=== PATIENT | female | born 1970 | race Caucasian/White ===

== ENCOUNTER 2018-05-28 18:53 | Inpatient (IN) | payer OTHER ==
[~2018-05-28] VITALS: Ht 157.5 cm; Wt 72.7 kg
[2018-05-28] MEDS ORDERED: ONDANSETRON 2MG/ML, 2ML ONE (19:02)
[2018-05-28] MEDS ORDERED: PROMETHAZINE 25 MG/ML, 1ML ONE (19:26)
[2018-05-28] MEDS ORDERED: ONDANSETRON 2MG/ML, 2ML IVPush ONE (19:30)
[2018-05-28] MEDS ORDERED: NITROGLYCERIN SINGLE TAB 0.4 MG SL PRN (19:30)
[2018-05-28] MEDS ORDERED: MORPHINE SULFATE 4 MG/ML, 1ML IVPush PRN (19:30)
[2018-05-28] MEDS ORDERED: PROMETHAZINE 25 MG/ML, 1ML IM ONE (19:30)
[2018-05-28] MEDS ORDERED: SODIUM CHLORIDE FLUSH 10ML SYR IVF ONE (19:30)
[2018-05-28 19:33] LABS: BASOPHILS # (AUTO) 0.01 x10^3/uL (0-0.1); BASOPHILS % (AUTO) 0 % (0-1); EOSINOPHILS # (AUTO) 0.01 x10^3/uL (0-0.4); EOSINOPHILS % (AUTO) 0 % (1-7); LYMPHOCYTES # (AUTO) 1.78 x10^3/uL (1-3.4); LYMPHOCYTES % (AUTO) 14 % (22-44); MD NO; MEAN CORPUSCULAR HEMOGLOBIN 31.6 pg (27.0-34.8); MEAN CORPUSCULAR HGB CONC 34.3 g/dL (32.4-35.8); MEAN CORPUSCULAR VOLUME 92.1 fL (80-100); MEAN PLATELET VOLUME 7.9 fL (7.4-10.4); MONOCYTES # (AUTO) 0.49 x10^3/uL (0.2-0.8); MONOCYTES % (AUTO) 4 % (2-9); NEUTROPHILS # (AUTO) 10.06 x10^3/uL (1.8-6.8); NEUTROPHILS % (AUTO) 81 % (42-75); PLATELET COUNT 380 x10^3/uL (130-400); RED BLOOD COUNT 5.03 x10^6/uL (3.82-5.3); RED CELL DISTRIBUTION WIDTH 13.2 % (9.6-15.2)
[2018-05-28 19:42] LABS: ALANINE AMINOTRANSFERASE 62 U/L (12-78); ALBUMIN 4.6 g/dL (3.4-5.0); ANION GAP 16 mmol/L (5-15); CALCIUM 9.4 mg/dL (8.5-10.1); CHLORIDE 106 mmol/L (98-107); CREATININE 1.11 mg/dL (0.55-1.02)
[2018-05-28 19:45] LABS: D-DIMER 0.42 ug/mlFEU (0.00-0.52); INTERNATIONAL NORMALIZED RATIO 1.01 (0.93-1.1); PROTHROMBIN TIME 10.7 Seconds (9.6-11.5)
[2018-05-28 19:46] LABS: ALKALINE PHOSPHATASE 50 U/L (45-117); BILIRUBIN,TOTAL 0.6 mg/dL (0.2-1.0); TOTAL PROTEIN 8.6 g/dL (6.4-8.2); TROPONIN I < 0.015 ng/mL (0.000-0.045)
[2018-05-28] MEDS ORDERED: ZIPR80CA2 PO (20:00)
[2018-05-28] MEDS ORDERED: METOCLOPRAMIDE 5 MG/ML, 2ML IVPush ONE (20:00)
[2018-05-28] MEDS ORDERED: QUET400T4 PO (20:00)
[2018-05-28] MEDS ORDERED: METOCLOPRAMIDE 5 MG/ML, 2ML ONE (20:08)
[2018-05-28] MEDS ORDERED: SODIUM CHLORIDE FLUSH 10ML SYR IVF PRN (20:30)
[2018-05-28] MEDS ORDERED: NITROGLYCERIN 0.4 MG BOTTLE (25 TABS) SL PRN (21:00)
[2018-05-28] MEDS ORDERED: QUETIAPINE 200 MG TABLET PO SCH ×2 (21:00→22:21)
[2018-05-28] MEDS: ZIPRASIDONE 40MG CAPSULE PO SCH ×2 (21:00→22:17)
[2018-05-28] MEDS ORDERED: hydrALAzine 20 MG/ML, 1ML IVPush PRN (21:00)
[2018-05-28] MEDS ORDERED: ACETAMINOPHEN 325 MG TABLET PO PRN (21:00)
[2018-05-28] MEDS: SODIUM CHLORIDE 0.9% 1,000 ML IV SCH (21:44)
[2018-05-28] MEDS: ONDANSETRON 2MG/ML, 2ML IVPush PRN (22:16)
[2018-05-28] MEDS: morphine SULFATE 10 MG/ML, 1ML IVPush PRN ×2 (22:16→22:50)
[2018-05-28] MEDS ORDERED: ZIPRASIDONE 40MG CAPSULE PO SCH (22:21)
[2018-05-28 22:30] VITALS: BP 150/91
[2018-05-28] MEDS: ZIPRASIDONE 40MG CAPSULE HOMEMEDPO SCH (22:30)
[2018-05-28] MEDS: PROMETHAZINE 25 MG/ML, 1ML IM PRN (23:07)
[2018-05-29] MEDS ORDERED: ZOLPIDEM 5MG TABLET ONE (00:37)
[2018-05-29] MEDS: morphine SULFATE 10 MG/ML, 1ML IVPush PRN ×3 (00:40→19:38)
[2018-05-29] MEDS: ZOLPIDEM 5MG TABLET PO PRN (00:40)
[2018-05-29 00:55] VITALS: BP 99/66
[2018-05-29 01:16] LABS: TROPONIN I < 0.015 ng/mL (0.000-0.045)
[2018-05-29 01:33] VITALS: BP 96/61
[2018-05-29] MEDS ORDERED: SODIUM CHLORIDE 0.9%, 250ML IVBOLUS ONE (02:30)
[2018-05-29 03:40] VITALS: BP_SYST 153; BP_SYST 159; BP_DIAS 93; BP_DIAS 94
[2018-05-29] MEDS: PROMETHAZINE 25 MG/ML, 1ML IM PRN ×6 (03:56→20:52)
[2018-05-29] MEDS: SODIUM CHLORIDE 0.9% 1,000 ML IV SCH ×2 (04:02→13:00)
[2018-05-29 07:21] LABS: BASOPHILS # (AUTO) 0.03 x10^3/uL (0-0.1); BASOPHILS % (AUTO) 0 % (0-1); EOSINOPHILS % (AUTO) 0 % (1-7); LYMPHOCYTES # (AUTO) 1.49 x10^3/uL (1-3.4); LYMPHOCYTES % (AUTO) 14 % (22-44); MD NO; MEAN CORPUSCULAR HGB CONC 33.8 g/dL (32.4-35.8); MEAN CORPUSCULAR VOLUME 91.9 fL (80-100); MEAN PLATELET VOLUME 7.9 fL (7.4-10.4); MONOCYTES # (AUTO) 0.62 x10^3/uL (0.2-0.8); MONOCYTES % (AUTO) 6 % (2-9); NEUTROPHILS # (AUTO) 8.95 x10^3/uL (1.8-6.8); NEUTROPHILS % (AUTO) 81 % (42-75); PLATELET COUNT 329 x10^3/uL (130-400); RED BLOOD COUNT 4.46 x10^6/uL (3.82-5.3); RED CELL DISTRIBUTION WIDTH 13.2 % (9.6-15.2)
[2018-05-29 07:32] LABS: ALANINE AMINOTRANSFERASE 51 U/L (12-78); ANION GAP 6 mmol/L (5-15); CALCIUM 7.8 mg/dL (8.5-10.1); CHLORIDE 109 mmol/L (98-107); CHOLESTEROL, TOTAL 181 mg/dL (140-239); CREATININE 0.77 mg/dL (0.55-1.02)
[2018-05-29 07:37] LABS: ALKALINE PHOSPHATASE 43 U/L (45-117); BILIRUBIN,TOTAL 0.8 mg/dL (0.2-1.0); HDL CHOL % 25 % (28-40); HDL CHOLESTEROL (DIRECT) 45 mg/dL (40-60); LDL CHOLESTEROL,CALCULATED 112 mg/dL (54-169); LDL/HDL RATIO 2.5 (0.5-3.0); TOTAL PROTEIN 7.6 g/dL (6.4-8.2); TRIGLYCERIDES 121 mg/dL (50-200); TROPONIN I < 0.015 ng/mL (0.000-0.045); VLDL CHOLESTEROL 24 mg/dL (0-25)
[2018-05-29] MEDS: ASPIRIN 81 MG TABLET CHEW PO SCH (08:15)
[2018-05-29] MEDS ORDERED: REGADENOSON 0.4 MG/5 ML SYRINGE ONE (08:22)
[2018-05-29 08:26] VITALS: BP 155/90
[2018-05-29 08:39] LABS: MICROSCOPIC INDICATED
[2018-05-29 08:56] LABS: CULTURE INDICATED? YES
[2018-05-29] MEDS: ONDANSETRON 2MG/ML, 2ML IVPush PRN (12:41)
[2018-05-29 13:02] VITALS: BP 149/87
[2018-05-29] MEDS ORDERED: LORazepam 2 MG/ML, 1ML IVPush ONE (15:30)
[2018-05-29] MEDS ORDERED: METOCLOPRAMIDE 5 MG/ML, 2ML IVPush ONE (15:30)
[2018-05-29 19:50] VITALS: BP 153/79
[2018-05-29] MEDS: QUETIAPINE 200 MG TABLET HOMEMEDPO SCH (20:52)
[2018-05-29] MEDS: ZIPRASIDONE 40MG CAPSULE HOMEMEDPO SCH (20:58)
[2018-05-29] MEDS: NS + 20MEQ KCL 1,000 ML IV SCH (21:08)
[2018-05-30 03:32] VITALS: BP 100/60
[2018-05-30] MEDS: NS + 20MEQ KCL 1,000 ML IV SCH ×3 (05:11→23:04)
[2018-05-30 08:59] VITALS: BP 152/94
[2018-05-30] MEDS: ASPIRIN 81 MG TABLET CHEW PO SCH (09:29)
[2018-05-30] MEDS: PROMETHAZINE 25 MG/ML, 1ML IM PRN ×2 (09:29→19:46)
[2018-05-30] MEDS: morphine SULFATE 10 MG/ML, 1ML IVPush PRN ×3 (10:07→19:48)
[2018-05-30] MEDS ORDERED: LORazepam 2 MG/ML, 1ML IVPush PRN (11:00)
[2018-05-30] MEDS ORDERED: PROCHLORPERAZINE 5 MG/ML, 2ML IV ONE (11:00)
[2018-05-30] MEDS: LORazepam 2 MG/ML, 1ML IVPush PRN ×2 (11:06→15:24)
[2018-05-30] MEDS: ONDANSETRON 2MG/ML, 2ML IVPush PRN (11:10)
[2018-05-30 14:33] LABS: CLOSTRIDIUM DIFFICILE ANTIGEN NEGATIVE; CLOSTRIDIUM DIFFICILE TOXIN NEGATIVE (Negative)
[2018-05-30 15:59] VITALS: BP 110/73
[2018-05-30] MEDS: ZIPRASIDONE 40MG CAPSULE HOMEMEDPO SCH (20:01)
[2018-05-30] MEDS: QUETIAPINE 200 MG TABLET HOMEMEDPO SCH (20:01)
[2018-05-30 20:35] VITALS: BP 127/75
[2018-05-31 02:15] VITALS: BP 109/76
[2018-05-31 04:55] LABS: BASOPHILS # (AUTO) 0.11 x10^3/uL (0-0.1); BASOPHILS % (AUTO) 1 % (0-1); EOSINOPHILS # (AUTO) 0.17 x10^3/uL (0-0.4); EOSINOPHILS % (AUTO) 2 % (1-7); LYMPHOCYTES # (AUTO) 4.14 x10^3/uL (1-3.4); LYMPHOCYTES % (AUTO) 38 % (22-44); MD NO; MEAN CORPUSCULAR HEMOGLOBIN 31.6 pg (27.0-34.8); MEAN CORPUSCULAR HGB CONC 34.1 g/dL (32.4-35.8); MEAN CORPUSCULAR VOLUME 92.6 fL (80-100); MEAN PLATELET VOLUME 7.7 fL (7.4-10.4); MONOCYTES # (AUTO) 0.69 x10^3/uL (0.2-0.8); MONOCYTES % (AUTO) 6 % (2-9); NEUTROPHILS # (AUTO) 5.93 x10^3/uL (1.8-6.8); NEUTROPHILS % (AUTO) 54 % (42-75); PLATELET COUNT 259 x10^3/uL (130-400); RED BLOOD COUNT 4.05 x10^6/uL (3.82-5.3)
[2018-05-31 05:03] LABS: ANION GAP 10 mmol/L (5-15); CALCIUM 7.7 mg/dL (8.5-10.1); CHLORIDE 110 mmol/L (98-107)
[2018-05-31 06:57] VITALS: BP 136/88
[2018-05-31] MEDS: NS + 20MEQ KCL 1,000 ML IV SCH ×3 (07:35→23:09)
[2018-05-31] MEDS: LORazepam 2 MG/ML, 1ML IVPush PRN ×2 (08:14→16:16)
[2018-05-31] MEDS: ONDANSETRON 2MG/ML, 2ML IVPush PRN (08:14)
[2018-05-31] MEDS: ASPIRIN 81 MG TABLET CHEW PO SCH (09:00)
[2018-05-31] MEDS: morphine SULFATE 10 MG/ML, 1ML IVPush PRN (09:38)
[2018-05-31] MEDS ORDERED: MIDAZOLAM 1 MG/ML, 5ML ONE (10:18)
[2018-05-31] MEDS ORDERED: FENTANYL PF 100 MCG/2ML ONE (10:18)
[2018-05-31] MEDS ORDERED: DIPHENHYDRAMINE 50 MG/ML, 1ML ONE (11:19)
[2018-05-31 12:22] VITALS: BP 120/81
[2018-05-31] MEDS: PANTOPRAZOLE 40 MG IV IVPush SCH ×2 (12:30→23:12)
[2018-05-31] MEDS: SUCRALFATE 1 GM/10 ML UDC PO SCH ×3 (12:30→19:50)
[2018-05-31] MEDS: PROMETHAZINE 25 MG/ML, 1ML IM PRN (17:03)
[2018-05-31] MEDS ORDERED: METOCLOPRAMIDE 5 MG/ML, 2ML ONE (18:05)
[2018-05-31] MEDS: METOCLOPRAMIDE 5 MG/ML, 2ML IVPush PRN (18:09)
[2018-05-31 19:45] VITALS: BP 170/99
[2018-05-31] MEDS: QUETIAPINE 200 MG TABLET HOMEMEDPO SCH (19:50)
[2018-05-31] MEDS: ZIPRASIDONE 40MG CAPSULE HOMEMEDPO SCH (19:50)
[2018-06-01 01:47] VITALS: BP 171/109
[2018-06-01] MEDS: morphine SULFATE 10 MG/ML, 1ML IVPush PRN ×3 (03:29→16:26)
[2018-06-01] MEDS: SUCRALFATE 1 GM/10 ML UDC PO SCH ×4 (07:21→21:32)
[2018-06-01 07:48] VITALS: BP 131/88
[2018-06-01] MEDS: NS + 20MEQ KCL 1,000 ML IV SCH ×2 (07:59→17:06)
[2018-06-01] MEDS: ASPIRIN 81 MG TABLET CHEW PO SCH (08:50)
[2018-06-01] MEDS: METOCLOPRAMIDE 5 MG/ML, 2ML IVPush PRN ×2 (08:50→15:43)
[2018-06-01] MEDS: PANTOPRAZOLE 40 MG IV IVPush SCH (12:00)
[2018-06-01 14:00] VITALS: BP 137/89
[2018-06-01] MEDS: PROCHLORPERAZINE 5 MG/ML, 2ML IVPush PRN (14:14)
[2018-06-01] MEDS ORDERED: ESTR1PAT40 TD (16:07)
[2018-06-01] MEDS: POTASSIUM CHLORIDE 20 MEQ TAB.ER.PRT PO SCH ×2 (16:26→17:00)
[2018-06-01] MEDS ORDERED: ESTRADIOL 0.05 MG/24 HR PATCH TD SCH (17:00)
[2018-06-01] MEDS: ONDANSETRON 2MG/ML, 2ML IVPush PRN (17:06)
[2018-06-01 18:41] VITALS: BP 147/92
[2018-06-01] MEDS: ZIPRASIDONE 40MG CAPSULE HOMEMEDPO SCH (21:32)
[2018-06-01] MEDS: QUETIAPINE 200 MG TABLET HOMEMEDPO SCH (21:32)
[2018-06-02] MEDS: ZOLPIDEM 5MG TABLET PO PRN ×2 (00:02→20:00)
[2018-06-02] MEDS: PANTOPRAZOLE 40 MG IV IVPush SCH ×2 (00:02→13:43)
[2018-06-02 01:33] VITALS: BP 163/88
[2018-06-02] MEDS: NS + 20MEQ KCL 1,000 ML IV SCH ×3 (03:09→22:29)
[2018-06-02 05:35] LABS: BASOPHILS # (AUTO) 0.07 x10^3/uL (0-0.1); BASOPHILS % (AUTO) 1 % (0-1); EOSINOPHILS # (AUTO) 0.17 x10^3/uL (0-0.4); EOSINOPHILS % (AUTO) 2 % (1-7); LYMPHOCYTES # (AUTO) 3.26 x10^3/uL (1-3.4); LYMPHOCYTES % (AUTO) 39 % (22-44); MD NO; MEAN CORPUSCULAR HEMOGLOBIN 31.5 pg (27.0-34.8); MEAN CORPUSCULAR HGB CONC 34.2 g/dL (32.4-35.8); MEAN PLATELET VOLUME 7.8 fL (7.4-10.4); MONOCYTES # (AUTO) 0.58 x10^3/uL (0.2-0.8); MONOCYTES % (AUTO) 7 % (2-9); NEUTROPHILS # (AUTO) 4.39 x10^3/uL (1.8-6.8); NEUTROPHILS % (AUTO) 52 % (42-75); PLATELET COUNT 344 x10^3/uL (130-400); RED BLOOD COUNT 4.44 x10^6/uL (3.82-5.3); RED CELL DISTRIBUTION WIDTH 12.7 % (9.6-15.2)
[2018-06-02 05:47] LABS: CHLORIDE 108 mmol/L (98-107)
[2018-06-02 05:55] LABS: ALANINE AMINOTRANSFERASE 46 U/L (12-78); ALBUMIN 3.8 g/dL (3.4-5.0); ALKALINE PHOSPHATASE 44 U/L (45-117); ANION GAP 12 mmol/L (5-15); BILIRUBIN,TOTAL 0.8 mg/dL (0.2-1.0); CALCIUM 8.2 mg/dL (8.5-10.1); TOTAL PROTEIN 7.1 g/dL (6.4-8.2)
[2018-06-02 07:55] VITALS: BP 168/112
[2018-06-02] MEDS: POTASSIUM CHLORIDE 20 MEQ TAB.ER.PRT PO SCH ×3 (08:00→18:00)
[2018-06-02] MEDS: ONDANSETRON 2MG/ML, 2ML IVPush PRN (08:04)
[2018-06-02] MEDS: SUCRALFATE 1 GM/10 ML UDC PO SCH ×4 (08:12→20:01)
[2018-06-02] MEDS: ASPIRIN 81 MG TABLET CHEW PO SCH (08:12)
[2018-06-02 09:22] VITALS: BP 165/94
[2018-06-02] MEDS: LORazepam 2 MG/ML, 1ML IVPush PRN (09:23)
[2018-06-02] MEDS: morphine SULFATE 10 MG/ML, 1ML IVPush PRN ×2 (09:23→13:43)
[2018-06-02] MEDS: PROCHLORPERAZINE 5 MG/ML, 2ML IVPush PRN (09:29)
[2018-06-02 12:03] VITALS: BP 115/79
[2018-06-02] MEDS: METOCLOPRAMIDE 5 MG/ML, 2ML IVPush PRN (13:43)
[2018-06-02] MEDS: HEPARIN 5,000 UNITS/ML, 1ML SQ SCH (18:00)
[2018-06-02 19:20] VITALS: BP 132/84
[2018-06-02] MEDS: ZIPRASIDONE 40MG CAPSULE HOMEMEDPO SCH (20:00)
[2018-06-02] MEDS: QUETIAPINE 200 MG TABLET HOMEMEDPO SCH (20:00)
[2018-06-03 02:00] VITALS: BP 130/87
[2018-06-03] MEDS: HEPARIN 5,000 UNITS/ML, 1ML SQ SCH ×2 (02:00→08:25)
[2018-06-03] MEDS: PANTOPRAZOLE 40 MG IV IVPush SCH (02:21)
[2018-06-03] MEDS: NS + 20MEQ KCL 1,000 ML IV SCH (05:59)
[2018-06-03 07:21] VITALS: BP 134/82
[2018-06-03 07:32] LABS: BASOPHILS # (AUTO) 0.12 x10^3/uL (0-0.1); BASOPHILS % (AUTO) 2 % (0-1); EOSINOPHILS # (AUTO) 0.19 x10^3/uL (0-0.4); EOSINOPHILS % (AUTO) 3 % (1-7); LYMPHOCYTES % (AUTO) 38 % (22-44); MD NO; MEAN CORPUSCULAR HEMOGLOBIN 31.3 pg (27.0-34.8); MEAN PLATELET VOLUME 7.7 fL (7.4-10.4); MONOCYTES # (AUTO) 0.42 x10^3/uL (0.2-0.8); MONOCYTES % (AUTO) 7 % (2-9); NEUTROPHILS % (AUTO) 51 % (42-75); PLATELET COUNT 335 x10^3/uL (130-400); RED BLOOD COUNT 4.26 x10^6/uL (3.82-5.3); RED CELL DISTRIBUTION WIDTH 13.1 % (9.6-15.2)
[2018-06-03 07:42] LABS: ALBUMIN 3.4 g/dL (3.4-5.0); ANION GAP 6 mmol/L (5-15); CALCIUM 7.8 mg/dL (8.5-10.1); CHLORIDE 110 mmol/L (98-107)
[2018-06-03] MEDS ORDERED: SUCR1ORA5 PO (07:45)
[2018-06-03] MEDS ORDERED: PROM25TA10 PO (07:45)
[2018-06-03] MEDS ORDERED: PANT40TA3 PO ×3 (07:45→10:01)
[2018-06-03 07:47] LABS: ALANINE AMINOTRANSFERASE 50 U/L (12-78); ALKALINE PHOSPHATASE 41 U/L (45-117); BILIRUBIN,TOTAL 0.8 mg/dL (0.2-1.0); CREATININE 0.69 mg/dL (0.55-1.02); TOTAL PROTEIN 6.6 g/dL (6.4-8.2)
[2018-06-03] MEDS ORDERED: PROMETHAZINE 25MG TABLET PO PRN (08:00)
[2018-06-03] MEDS: ASPIRIN 81 MG TABLET CHEW PO SCH (08:24)
[2018-06-03] MEDS: POTASSIUM CHLORIDE 20 MEQ TAB.ER.PRT PO SCH (08:24)
[2018-06-03] MEDS: SUCRALFATE 1 GM/10 ML UDC PO SCH (08:24)
== END 2018-06-03 11:20 | disposition home or self-care (01) | DRG 445 ==
LOC: ED 19:43 → 5SO 20:53 → 3NE 06-01 12:23
PROVIDERS: ADMIT Hospitalist; ATTEND Hospitalist
PROC: 0DB58ZX Excision of Esophagus, Via Natural or Artificial Opening Endoscopic, Diagnostic (ICD-10-PCS; 2018-05-31)
PROC: 0DB48ZX Excision of Esophagogastric Junction, Via Natural or Artificial Opening Endoscopic, Diagnostic (ICD-10-PCS; principal; 2018-05-31 08:30)
DX: K80.20 Calculus of gallbladder without cholecystitis without obstruction (principal); F11.20 Opioid dependence, uncomplicated; K21.0 Gastro-esophageal reflux disease with esophagitis; D72.829 Elevated white blood cell count, unspecified; F31.9 Bipolar disorder, unspecified; G47.00 Insomnia, unspecified; G89.29 Other chronic pain; M54.2 Cervicalgia; I10 Essential (primary) hypertension; K22.2 Esophageal obstruction; K29.80 Duodenitis without bleeding; K44.9 Diaphragmatic hernia without obstruction or gangrene; M54.10 Radiculopathy, site unspecified; Z88.6 Allergy status to analgesic agent; Z88.0 Allergy status to penicillin; Z88.2 Allergy status to sulfonamides; Z88.8 Allergy status to other drugs, medicaments and biological substances; K22.8 Other specified diseases of esophagus; K76.0 Fatty (change of) liver, not elsewhere classified
CPT/HCPCS: 36415; 71045; 74018; 74220; 76700; 78452; 80048; 80053; 80061; 81001; 83690; 83735; 83880; 84100; 84484; 85025; 85379; 85610; 85730; 87086; 87324; 88305; 88312; 93005; 93017; 96372; 96374; 96375; 99152; 99153; G0378; J1644; J2250; J2405; J2550; J2785; J3010; J3480; A9502; C9113; C9898; J0360; J0780; J1200; J2060; J2270; J2765; J7030; J7050